=== PATIENT | female | born 1980 | race Caucasian/White ===

== ENCOUNTER 2020-05-09 14:50 | Outpatient (CLI) | payer OTHER, SELFPAY ==
--- NOTE | ~2020-05-09 | MM_ITS ---
EXAMINATION: MM screening liss BI w rafael HISTORY: Screening mammogram TECHNIQUE: Craniocaudal and mediolateral oblique 3-D tomosynthesis images were obtained and synthetic 2-D images were generated. CAD analysis was submitted and interpreted. COMPARISON: 04/06/2019 BREAST PARENCHYMAL COMPOSITION: The breasts are heterogeneously dense, which may obscure small masses . FINDINGS: There is no evidence of suspicious mass, calcification, or architectural distortion to sugg est malignancy in either breast. There has been no suspicious interval change. IMPRESSION: 1. No mammographic evidence of malignancy. 2. Recommend routine screening mammography in one year. BI-RADS Category 1: Negative Reviewed, dictated and finalized at location A.
== END 2020-05-09 14:51 | disposition home or self-care (01) ==
LOC: ANHIMG 14:54
PROVIDERS: PCP Internal Medicine; Visit Provider Obstetrics & Gynecology
DX: Z12.31 Encounter for screening mammogram for malignant neoplasm of breast (principal)
CPT/HCPCS: 77063; 77067

== ENCOUNTER 2021-02-20 14:44 | Outpatient (CLI) | payer OTHER, SELFPAY ==
--- NOTE | ~2021-02-20 | US_ITS ---
EXAMINATION: US pelvic complete w TV DATE: 02/20/2021 15:46 INDICATION: Displacement of intrauterine contraceptive device. TECHNIQUE: Multiple transabdominal and transvaginal sonographic images of the pelvis were obtained. COMPARISON: None. FINDINGS: TRANSABDOMINAL ULTRASOUND: The uterus measures 7.2 x 4.8 x 4.1 cm. There is no free fluid in the pelvis. TRANSVAGINAL ULTRASOUND: The endometrial complex measures 6 mm in thickness. There is an intrauterine device in abnormally low position. The right ovary measures 2.7 x 2.4 x 2.4 cm. The left ovary measures 2.6 x 1.9 x 1.7 cm. IMPRESSION: 1. Intrauterine device in abnormally low position. Reviewed, dictated and finalized at location A.
== END 2021-02-20 14:45 | disposition home or self-care (01) ==
PROVIDERS: PCP Internal Medicine; Visit Provider Obstetrics & Gynecology
DX: T83.32XA Displacement of intrauterine contraceptive device, initial encounter (principal)
CPT/HCPCS: 76830; 76856

== ENCOUNTER 2022-03-19 08:03 | Outpatient (CLI) | payer OTHER, SELFPAY ==
--- NOTE | 2022-03-19 08:20 | EST_ITS ---
Patient Info Name: Silva Saavedra Age: 41 years : 1980 Gender: Female Ht: 67 in Wt: 185 lbs BSA: 2.01 m2 Exam Date: 03/19/2022 8:38 AM Exam Location: [facility] Stress Patient Status: Outpatient Admit Date: 03/19/2022 Staff Ordering Physician: Nancy Potts Attending Provider: Nancy Potts Exercise Technologist: Alisa Farfan RDCS Exercise Physician: Milton Perez DO Exam Type: CA stress test treadmill Study Info A treadmill exercise stress test was performed. Summary 1. 1. Negative Martir exercise stress test for ischemic ST changes by ECG criteria. 2. 2. Good functional capacity, achieving 10 METs of workload. 3. 3. Appropriate HR response to exercise. 4. 4. Appropriate HR recovery at 1 minute post exercise. 5. 5. No imaging with stress testing. 6. 6. Patient informed of the above results. Protocol: Martir Stress ECG Details Stage: REST Duration (min): 4 min : 57 sec Speed (mph): 0.0 Grade (%): 0 HR (bpm): 61 SBP (mmHg): 114 DBP (mmHg): 70 METS: --- Stage: REST Duration (min): 17 min : 0 sec Speed (mph): 0.0 Grade (%): 0 HR (bpm): 69 SBP (mmHg): 114 DBP (mmHg): 70 METS: --- Stage: STAGE 1 Duration (min): 1 min : 0 sec Speed (mph): 1.7 Grade (%): 10 HR (bpm): 100 SBP (mmHg): 114 DBP (mmHg): 70 METS: --- Stage: STAGE 1 Duration (min): 2 min : 0 sec Speed (mph): 1.7 Grade (%): 10 HR (bpm): 111 SBP (mmHg): 114 DBP (mmHg): 70 METS: --- Stage: STAGE 1 Duration (min): 3 min : 0 sec Speed (mph): 1.7 Grade (%): 10 HR (bpm): 116 SBP (mmHg): 137 DBP (mmHg): 77 METS: --- Stage: STAGE 2 Duration (min): 1 min : 0 sec Speed (mph): 2.5 Grade (%): 12 HR (bpm): 122 SBP (mmHg): 137 DBP (mmHg): 77 METS: --- Stage: STAGE 2 Duration (min): 2 min : 0 sec Speed (mph): 2.5 Grade (%): 12 HR (bpm): 131 SBP (mmHg): 136 DBP (mmHg): 77 METS: --- Stage: STAGE 2 Duration (min): 3 min : 0 sec Speed (mph): 2.5 Grade (%): 12 HR (bpm): 135 SBP (mmHg): 136 DBP (mmHg): 77 METS: --- Stage: STAGE 3 Duration (min): 1 min : 0 sec Speed (mph): 3.4 Grade (%): 14 HR (bpm): 150 SBP (mmHg): 133 DBP (mmHg): 77 METS: --- Stage: STAGE 3 Duration (min): 2 min : 0 sec Speed (mph): 3.4 Grade (%): 14 HR (bpm): 155 SBP (mmHg): 133 DBP (mmHg): 77 METS: --- Stage: STAGE 3 Duration (min): 3 min : 0 sec Speed (mph): 3.4 Grade (%): 14 HR (bpm): 160 SBP (mmHg): 140 DBP (mmHg): 77 METS: --- Stage: RECOVERY Duration (min): 0 min : 59 sec Speed (mph): 0.0 Grade (%): 0 HR (bpm): 127 SBP (mmHg): 144 DBP (mmHg): 65 METS: --- Stage: RECOVERY Duration (min): 1 min : 59 sec Speed (mph): 0.0 Grade (%): 0 HR (bpm): 1
== END 2022-03-19 08:04 | disposition home or self-care (01) ==
PROVIDERS: PCP Internal Medicine; Visit Provider Nurse Practitioner
DX: Z13.6 Encounter for screening for cardiovascular disorders (principal); R63.5 Abnormal weight gain
CPT/HCPCS: 36415; 84443; 93017

== ENCOUNTER 2022-03-24 14:56 | Outpatient (CLI) | payer OTHER, SELFPAY ==
--- NOTE | ~2022-03-24 | MM_ITS ---
EXAMINATION: HISTORY: Screening mammogram TECHNIQUE: Craniocaudal and mediolateral oblique 3-D tomosynthesis images were obtained and synthetic 2-D images were generated. CAD analysis was submitted and interpreted. COMPARISON: No prior mammogram is available for comparison at this institution. BREAST PARENCHYMAL COMPOSITION: The breasts are heterogeneously dense, which may obscure small masses . FINDINGS: There is no evidence of suspicious mass, calcification, or architectural distortion to sugg est malignancy in either breast. There has been no suspicious interval change. IMPRESSION: 1. No mammographic evidence of malignancy. 2. Recommend routine screening mammography in one year. BI-RADS Category 1: Negative Reviewed, dictated and finalized at location A.
== END 2022-03-24 14:57 | disposition home or self-care (01) ==
PROVIDERS: PCP Internal Medicine; Visit Provider Obstetrics & Gynecology
DX: Z12.31 Encounter for screening mammogram for malignant neoplasm of breast (principal)
CPT/HCPCS: 77063; 77067

== ENCOUNTER → 2023-07-10 09:05 | Outpatient (CLI) | payer OTHER, SELFPAY ==
--- NOTE | ~2023-07-10 | MM_ITS ---
EXAMINATION: MM screening liss BI w rafael HISTORY: Screening mammogram TECHNIQUE: Craniocaudal and mediolateral oblique 3-D tomosynthesis images were obtained and synthetic 2-D images were generated. CAD analysis was submitted and interpreted. COMPARISON: 03/24/2022, 05/09/2020, 04/06/2019 bilateral screening mammogram examinations BREAST PARENCHYMAL COMPOSITION: The breasts are heterogeneously dense, which may obscure small masses . FINDINGS: There is no evidence of suspicious mass, calcification, or architectural distortion to sugg est malignancy in either breast. There has been no suspicious interval change. IMPRESSION: 1. No mammographic evidence of malignancy. 2. Recommend routine screening mammography in one year. BI-RADS Category 1: Negative Reviewed, dictated and finalized at location A.
== END ==
PROVIDERS: PCP Family Medicine; Visit Provider Obstetrics & Gynecology
DX: Z12.31 Encounter for screening mammogram for malignant neoplasm of breast (principal)
CPT/HCPCS: 77063; 77067

== ENCOUNTER 2024-04-01 10:25 | Outpatient (CLI) | payer OTHER, SELFPAY ==
[2024-04-01 11:26] LABS: Hemoglobin A1C 4.6 % (<5.7)
[2024-04-01 11:28] LABS: Alanine Aminotransferase 13 U/L (6-35); Albumin Level 4.3 g/dL (3.5-5.1); Alkaline Phosphatase 51 U/L (38-126); Anion Gap 7 mmol/L (4-12); Aspartate Amino Transferase 18 U/L (14-36); Blood Urea Nitrogen 8 mg/dL (7-17); Calcium 9.2 mg/dL (8.4-10.2); Carbon Dioxide 25 mmol/L (22-30); Chloride 106 mmol/L (98-107); Cholesterol 145 mg/dL (0-200); Estimated Glomerular Filt Rate > 60; Glucose 87 mg/dL (65-110); HDL Direct 37 mg/dL; Potassium 3.9 mmol/L (3.4-5.0); Sodium 138 mmol/L (137-145); Triglycerides 77 mg/dL (<150)
[2024-04-01 11:39] LABS: LDL Cholesterol Direct 100 mg/dL
== END 2024-04-01 10:26 | disposition home or self-care (01) ==
PROVIDERS: PCP Nurse Practitioner
DX: Z01.89 Encounter for other specified special examinations (principal); E66.3 Overweight
CPT/HCPCS: 36415; 80053; 80061; 83036; 84443

== ENCOUNTER 2024-04-26 01:12 | Day surgery (SDC) | payer OTHER, SELFPAY ==
[2024-04-12 09:56] VITALS: BMI 25.9
[2024-04-26 08:59] VITALS: BP 109/65; PULSE 62; RESP 18; TEMP 36.3; O2SAT 100
[2024-04-26] MEDS: LACTATED RINGERS 1,000 ML 150 ML IV CONT (09:07)
--- NOTE | 2024-04-26 09:09 | WPDANESEPPF ---
Anes - Initial Pre Proc Eval Procedure: Operation Date: 04/26/24 10:00 Proposed Procedures p Screening Colonoscopy - Escobar Ford MD Date/Time: 04/26/24 09:09 Surgeon: Escobar Ford MD Pre Op Diagnosis: neoplasm screening Patient Data Age: 43 Gender: F Height: 1.7 m Weight: 73.4 kg Last Vital Signs Temp 97.3 F L 04/26/24 08:59 Pulse 62 04/26/24 08:59 Resp 18 04/26/24 08:59 BP 109/65 04/26/24 08:59 Pulse Ox 100 04/26/24 08:59 O2 Del Method Room Air 04/26/24 08:59 Allergies Allergy/AdvReac Type Severity Reaction Status Date / Time No Known Allergies Allergy Verified 04/26/24 08:52 Home Medications Medication Instructions Recorded Confirmed Type levonorgestrel 21 mcg/24 hr (up to 1 device intrauterine ONCE 01/16/21 04/12/24 History 8 years) 52 mg intrauterine device (Mirena) tirzepatide 5 mg/0.5 mL 5 mg subcut WEEKLY 04/12/24 04/12/24 History subcutaneous pen injector (Mounjaro) Patient hx anesthesia problems: none Family hx anesthesia problems: none Results Review: All pre-operative results and documents have been reviewed as part of the pre-operative evaluation. [facility] Surgical History Surgical History (Updated 01/25/24 @ 15:07 by Pauline Bonilla CMA) History of cholecystectomy History of surgery on arm History of tonsillectomy Hx of neck surgery Previous section x 2 S/P scar revision Family History Family History Mother Hypertension Father Family history of alcoholism Sibling Family history of multiple sclerosis Grandparent Diabetes mellitus, Onset Age: 62 Other Family history of cardiovascular disease Family history of kidney disease Social History Social History Smoking status: Former smoker Second hand tobacco smoke exposure: No Smoking end date: 11/22/11 Alcohol intake: current Drinks per week: 6 Substance use: never Substance use type: does not use Lack of Transportation: No Lack of Food: Never True Current Housing: I Have Housing Concerned About Future Housing: No Difficulty Paying Gas/Electric Bills: No Difficulty Paying for Meds: No Currently Unemployed: No Education: Master's Degree or Higher Difficulty w/ Childcare or Family Care: No Living arrangements: with family Spiritual care concerns: No Anes - Eval Final PreProcedure Day of Procedure 04/26/24 09:09 Patient weight: normal Heart: regular rate and rhythm Lungs: clear to auscultation Airway: Mallampati scale class II Neurological: alert and oriented Last oral intake: >/= 8 hours ASA classification: II Emergent: no Anesthetic plan: proceed Anesthesia type and monitoring: general GIVS and standard monitoring Results Review: All pre-operative results and documents have been reviewed as part of the pre-operative evaluation. Informed Consent: The patient's anesthetic plan and its attendant risks and benefits were discussed with the patient/family/POA. Questions were solicited and answers provided to the satisfaction of the patient/family/POA.
--- NOTE | 2024-04-26 09:54 | PM.HPGS ---
History of Present Illness History of Present Illness Consent: Risks, benefits, and alternatives have been discussed and questions answered. Patient agrees to proceed with procedure. Chief complaint: neoplasm screening Narrative: Silva Saavedra is a 43 year old female here for first screening colonoscopy Review of Systems Review of Systems: All systems reviewed & are unremarkable except as noted in HPI and below PMFSH Past Medical History Medical History (Updated 04/26/24 @ 09:56 by Escobar oFrd MD) Colon cancer screening Surgical History Surgical History (Updated 01/25/24 @ 15:07 by Pauline Bonilla [facility]) History of cholecystectomy History of surgery on arm History of tonsillectomy Hx of neck surgery Previous section x 2 S/P scar revision Family History Family History Mother Hypertension Father Family history of alcoholism Sibling Family history of multiple sclerosis Grandparent Diabetes mellitus, Onset Age: 62 Other Family history of cardiovascular disease Family history of kidney disease Social History Social History Smoking status: Former smoker Second hand tobacco smoke exposure: No Smoking end date: 11/22/11 Alcohol intake: current Drinks per week: 6 Substance use: never Substance use type: does not use Lack of Transportation: No Lack of Food: Never True Current Housing: I Have Housing Concerned About Future Housing: No Difficulty Paying Gas/Electric Bills: No Difficulty Paying for Meds: No Currently Unemployed: No Education: Master's Degree or Higher Difficulty w/ Childcare or Family Care: No Living arrangements: with family Spiritual care concerns: No Meds Home Medications and Allergies Home Medications Medication Instructions Recorded Confirmed Type levonorgestrel 21 mcg/24 hr (up to 1 device intrauterine ONCE 01/16/21 04/12/24 History 8 years) 52 mg intrauterine device (Mirena) tirzepatide 5 mg/0.5 mL 5 mg subcut WEEKLY 04/12/24 04/12/24 History subcutaneous pen injector (Mounjaro) Allergies Allergy/AdvReac Type Severity Reaction Status Date / Time No Known Allergies Allergy Verified 04/26/24 08:52 Vital Signs Vital Signs - 24 hr 04/26/24 08:59 Temperature 97.3 F L Pulse Rate 62 Respiratory Rate 18 Blood Pressure 109/65 Pulse Oximetry 100 Oxygen Delivery Room Air Exam Const: General: comfortable and no acute distress HENMT: Face/Nose/Sinus: Normal nares present Eyes: General: appearance normal, both eyes and all related structures Neck: Neck: no JVD Resp: Auscultation: clear to auscultation bilaterally Cardio: Rate: regular rate Rhythm: regular rhythm GI: Inspection: non-distended GI Palp: Yes Soft to palpation Skin: General skin exam: normal color Neuro: General: gait normal Speech: normal speech Extrem: General: normal to inspection Psych: Mental Status: mental status grossly normal Assessment and Plan Assessment and plan (1) Colon cancer screening: Code(s): Z12.11 - Encounter for screening for malignant neoplasm of colon Status: Acute Assessment and Plan: colonoscopy
[2024-04-26 10:19] VITALS: BP 97/61; PULSE 68; RESP 20; O2SAT 100
[2024-04-26 10:29] VITALS: BP 105/71; PULSE 61; RESP 21; O2SAT 100
[2024-04-26 10:39] VITALS: BP 113/69; PULSE 71; RESP 18; O2SAT 100
== END 2024-04-26 10:45 | disposition home or self-care (01) ==
PROVIDERS: PCP Nurse Practitioner; Referring Provider Obstetrics & Gynecology; Visit Provider Internal Medicine Gastroenterology
PROC: 0DJD8ZZ Inspection of Lower Intestinal Tract, Via Natural or Artificial Opening Endoscopic (ICD-10-PCS; CPT 45378; principal; 2024-04-26 10:00)
DX: Z12.11 Encounter for screening for malignant neoplasm of colon (principal); D12.2 Benign neoplasm of ascending colon; K64.8 Other hemorrhoids; Z79.85 Long-term (current) use of injectable non-insulin antidiabetic drugs; Z87.891 Personal history of nicotine dependence
CPT/HCPCS: 45380; 88305; J2704; J7120

== ENCOUNTER 2024-11-12 12:33 | Emergency (ER) | payer OTHER, SELFPAY ==
[2024-11-12 13:16] VITALS: BP 106/78; PULSE 67; RESP 18; TEMP 36.5; O2SAT 100
--- NOTE | 2024-11-12 13:55 | ED.URI ---
HPI - URI/Sore Throat General Chief Complaint: Upper Respiratory Infection Stated Complaint: cold symptoms Time Seen by Provider: 11/12/24 13:55 Source: patient, RN notes reviewed and old records reviewed Mode of arrival: ambulatory Limitations: no limitations History of Present Illness HPI Narrative: 44 year old female who presents to [facility] care with complaints of not feeling well on with complaints of fevers starting on Wednesday up to 103F, sore throat which feels like it is o fire, and non productive cough with some general body aches. Patient has been taking Tylenol and Ibuprofen for her symptoms. 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 MD elicited complaint: fever, cough, sore throat and other (body aches) Onset (ago): day(s) (4) Severity: moderate Able to tolerate fluids by mouth: Yes Treatments prior to arrival: acetaminophen and ibuprofen Related Data Home Medications ?Medication ?Instructions ?Recorded ?Confirmed ?Last Taken ?Type levonorgestrel (Mirena) 1 device intrauterine ONCE 01/16/21 04/12/24 Unknown History tirzepatide 5 mg/0.5 mL 5 mg subcut WEEKLY 04/12/24 04/12/24 04/14/24 History subcutaneous pen injector (Mounjaro) Allergies Allergy/AdvReac Type Severity Reaction Status Date / Time No Known Allergies Allergy Verified 11/12/24 13:44 Review of Systems Review of Systems: CONSTITUTIONAL: Reports malaise, chills, sweats, or fever. EYES: Denies visual changes, redness, or discharge. ENT: Reports rhinorrhea, congestion, no sinus pain,no otalgia and positive sore throat. CARDIOVASCULAR: Denies chest pain, palpitations, or edema. RESPIRATORY: Reports cough.? Denies dyspnea. GASTROINTESTINAL: Denies abdominal pain, nausea, vomiting, diarrhea SKIN: Denies rash or itching. MUSCULOSKELETAL:reports myalgia. NEUROLOGIC: Denies headache. All systems reviewed & are unremarkable except as noted in HPI and below PMFSH Past Medical History Medical History Colon cancer screening Surgical History Surgical History S/P scar revision History of surgery on arm Hx of neck surgery History of tonsillectomy History of cholecystectomy Previous section x 2 Family History Family History Mother Hypertension Father Family history of alcoholism Sibling Family history of multiple sclerosis Grandparent Diabetes mellitus, Onset Age: 62 Other Family history of cardiovascular disease Family history of kidney disease Social History Social History (Updated 11/14/24 @ 09:08 by Tonya Soto NP) Smoking status: Former smoker Second hand tobacco smoke exposure: No Smoking end date: 11/22/11 Additional smoking assessment comments: admits to some vaping Alcohol intake: current Drinks per week: 6 Substance use: never Substance use type: does not use Lack of Transportation: No Lack of Food: Never True Current Housing: I Have Housing Concerned About Future Housing: No Difficulty Paying Gas/Electric Bills: No Difficulty Paying for Meds: No Currently Unemployed: No Education: Master's Degree or Higher Difficulty w/ Childcare or Family Care: No Living arrangements: with family Spiritual care concerns: No Comments At time of signature, agree with nursing past medical, surgical, social and family history. There is no relevant family history pertinent to the presenting complaint Exam Narrative: GENERAL: Well-appearing, well-nourished, and in no acute distress. HEAD: Normocephalic EYES: PERRLA, conjunctivae clear ENT: Nares clear, turbinates edematous and erythematous, clear discharge. Mucous membranes moist. TM pearly welsh with dull light reflex bilaterally; no tragal tenderness. Oropharynx erythematous without lesions. Tonsils not present and throat without exudate, no drooling, no hoarseness, no trismus, uvula midline.post nasal drainage. NECK: Supple. No lymphadenopathy CHEST: Clear to auscultation, breath sounds equal. No wheezing, rhonchi, rales, or stridor. No respiratory distress, speaks in full sentences.cough noted SAO2 100% on room air HEART: Regular rate and rhythm. No murmur heard. SKIN: Warm, dry, no rash. NEURO: Alert and oriented x3. PSYCH: Normal mood and affect Course Course Emergency Course: Patient is aware of diagnosis, understands and agrees to treatment plan.? Anticipatory guidance given.? Patient agrees to follow-up as directed and is aware of reasons to seek care at the emergency department. Portions of this record may have been created with voice recognition software Level of Care: Express Care Visit Vital Signs Vital signs: Vital Signs Temperature 36.5 C 11/12/24 13:16 Pulse Rate 67 11/12/24 13:16 Respiratory Rate 18 11/12/24 13:16 Blood Pressure 106/78 11/12/24 13:16 Pulse Oximetry 100 11/12/24 13:16 Oxygen Delivery Room Air 11/12/24 13:16 Temperature 36.5 C 11/12/24 13:16 Pulse Rate 67 11/12/24 13:16 Respiratory Rate 18 11/12/24 13:16 Blood Pressure 106/78 11/12/24 13:16 Pulse Oximetry 100 11/12/24 13:16 Oxygen Delivery Room Air 11/12/24 13:16 Reviewed MDM - URI/Sore Throat MDM Narrative Medical decision making narrative: Differential diagnosis considered: Mcgill virus, strep pharyngitis, allergic rhinitis, upper respiratory tract infection, sinusitis, rhinosinusitis, nasopharyngitis. viral pharyngitis, otitis media, otitis externa, pneumonia, bronchitis, viral cough syndrome, viral syndrome, and influenza.? Exam findings show no acute concerns or changes; patient is non-toxic appearing and is in no distress.? Patient is appropriate for outpatient treatment and follow-up. Differential Diagnosis Differential diagnosis: Likely upper respiratory infection, sinusitis, viral infection, influenza, pharyngitis and other (strep pharyngitis, COVID) Medical Records Attestation: I reviewed the patient's medical records. Lab Data Attestation: I reviewed the patient's lab results. Lab results narrative: Strep screen negative, culture sent, Influenza A positive, Influenza B negative, Covid negative Labs: Lab Results 11/12/24 11/12/24 Range/Units 14:16 14:35 POC Influenza A Ag Positive (Negative) POC Influenza B Ag Negative (Negative) POC SARS CoV-2 Ag Negative (Negative) POC Grp A Strep Screen Negative (Negative) reviewed Critical Care Time Critical Care Time Critical Care Time: No Discharge Plan Discharge Clinical Impression: Influenza A Patient Disposition: Home, Self-Care Condition: Stable Instructions: Influenza (ED) Additional Instructions: Increase fluids especially juices and water Lbwy-gfk-fkydbes cough and cold medicine of your choice for your symptoms Zyrtec Claritin or Kiana daily Tylenol or ibuprofen for any fever pain Robitussin or Delsym cough syrup heat to the face 20-30 minutes 4-6 times a day for pain Salt water gargles, throat lozenges or throat sprays as desired You must be fever free for 24 hours without use of Tylenol or ibuprofen before you can be around others. on average it is usually 5 days from start of symptoms, recommend you wear mask for first few days when you are around others especially if around the elderly or children Patient Language: Ukrainian Prescriptions: No Action Mirena 20 mcg/24 hours (6 yrs) 52 mg intrauterine device 1 device intrauterine ONCE Rx Instructions: as a single dose Mounjaro 5 mg/0.5 mL Pen Injector 5 mg SUBCUT WEEKLY Rx Instructions: Fridays Follow-up/Referrals: Ricco Ponce MD [Primary Care Provider] - Time of Disposition: 14:35 Quality [place] Coma Scale Eyes: Open Verbal: Oriented and Alert Motor: Follows Commands [place] Coma Total Score: 15
[2024-11-12 14:17] LABS: EDSTREPNEGPOS1 Negative (Negative)
[2024-11-12 14:37] LABS: EDCOVIDSCREEN Negative (Negative); EDINFLUASCREEN Positive (Negative); EDINFLUBSCREEN Negative (Negative)
--- OUTSIDE RECORDS SUMMARY | 2024-11-19 18:21 | XMS_ITS | Continuity of Care Document ---
Author Organization [facility] Address [address] [place] [address] Phone Care Team Providers Care Parent Educator Name Role Phone Chandler Martinez Unavailable Unavailable Procedures Procedure Date Office/outpatient Visit, [facility] Advance Directives Directive Yes / No Effective Date File Name No Information Encounters Encounter Description Practice Location Reason(s) For Visit Diagnoses Date Provider Providers Copied on Encounter Office/outpat ient Visit, [facility], [address], [place], [place], [id number], [place] tel:[phone] [facility] No Information [address] [facility] [address], [address], [place]. tel:[phone] Family History Family Member Type Diagnosis Age [...]
--- OUTSIDE RECORDS SUMMARY | 2024-11-19 18:21 | XMS_ITS | Continuity of Care Document ---
Author Organization [facility] Address [address] [place] [address] Phone Care Team Providers Care Building Maintenance Engineer Name Role Phone Chandler Martinez Unavailable Unavailable Procedures Procedure Date Office/outpatient Visit, [facility] Advance Directives Directive Yes / No Effective Date File Name No Information Encounters Encounter Description Practice Location Reason(s) For Visit Diagnoses Date Provider Providers Copied on Encounter Office/outpat ient Visit, [facility], [address], [place], [place], [id number], [place] tel:[phone] [facility] No Information [address] [facility] [address], [place], [address], [place]. tel:[phone] Family History Family Member Type Diagnosis Age At Onset No Information Payers Payer name Insurance type Covered alliance party ID Authoriza tion(s) No Information Social [...]
== END 2024-11-12 14:38 | disposition home or self-care (01) ==
PROVIDERS: Emergency Provider Registered Nurse; PCP Family Medicine
DX: J10.1 Influenza due to other identified influenza virus with other respiratory manifestations (principal); Z20.822 Contact with and (suspected) exposure to COVID-19
CPT/HCPCS: 87081; 87426; 87804; 87880; 99213; G0463

== ENCOUNTER 2025-05-29 12:00 | Outpatient (CLI) | payer OTHER, SELFPAY ==
--- OUTSIDE RECORDS SUMMARY | 2025-05-29 12:03 | XMS_ITS | Continuity of Care Document ---
Author Organization Located [facility] Address [address] [place] [address] Phone Care Team Providers Care Sponge Packer Name Role Phone Chandler Martinez Unavailable Unavailable Procedures Procedure Date Office/outpatient Visit, [facility] Advance Directives Directive Yes / No Effective Date File Name No Information Encounters Encounter Description Practice Location Reason(s) For Visit Diagnoses Date Provider Providers Copied on Encounter Office/outpat ient Visit, [facility], [address], [place], [place], [id number], [place] tel:[phone] [facility] No Information [address] [facility] [address], [place], [address], [place]. tel:[phone] Family History Family Member Type Diagnosis Age At Onset No Information Payers Payer name Insurance type Covered libertarian ID Authoriza tion(s) No Information Social History [...]
== END 2025-05-29 12:01 | disposition home or self-care (01) ==
PROVIDERS: PCP Family Medicine; Visit Provider Obstetrics & Gynecology
DX: N95.1 Menopausal and female climacteric states (principal)
CPT/HCPCS: 36415; 83001

== ENCOUNTER 2025-09-27 09:12 | Outpatient (CLI) | payer OTHER, SELFPAY ==
--- OUTSIDE RECORDS SUMMARY | 2009-08-14 09:45 | XMS_ITS | Continuity of Care Document ---
Author Organization [facility] Address [address] [place] [address] Phone Care Team Providers Care Wincher Name Role Phone Chandler Martinez Unavailable Unavailable Procedures Procedure Date Office/outpatient Visit, [facility] Advance Directives Directive Yes / No Effective Date File Name No Information Encounters Encounter Description Practice Location Reason(s) For Visit Diagnoses Date Provider Providers Copied on Encounter Office/outpat ient Visit, [facility], [address], [place], [place], [id number], [place] tel:[phone] [facility] No Information [address] [facility] [address], [place], [address], [place]. tel:[phone] Family History Family Member Type Diagnosis Age At Onset No Information Payers Payer name Insurance type Covered green party ID Authoriza tion(s) No Information Social History Type Description Quantity Date Captured Comments Sex Female Smoking Status No Information Chief Complaint And Reason For Visit No Information Reason For Referral Reason For Referral No Information History Of Present Illness Encounter Date Complaint History Of Prese nt Illness No Information Functional Status Date Functional Assessmen t No Information Instructions Date Instruction Additional Infor mation No Information Assessments Type Assessment Date No Information Patient Care Teams Name Effective Dates (start - stop) Status Members No Information
--- NOTE | ~2025-09-27 | MM_ITS ---
EXAMINATION: MM screening liss BI w rafael HISTORY: Screening TECHNIQUE: Craniocaudal and mediolateral oblique 3-D tomosynthesis images were obtained and synthetic 2-D images were generated. CAD analysis was submitted and interpreted. COMPARISON: Comparison to multiple prior studies sequentially, with oldest reviewed study dated , 04/06/2019 BREAST PARENCHYMAL COMPOSITION: The breasts are heterogeneously dense, which may obscure small masses. FINDINGS: There is no evidence of suspicious mass, calcification, or architectural distortion to suggest malignancy in either breast. IMPRESSION: 1. No mammographic evidence of malignancy. 2. Recommend routine screening mammography in one year. BI-RADS Category 1: Negative Reviewed, dictated and finalized at location B. MACHINIST
== END 2025-09-27 09:13 | disposition home or self-care (01) ==
LOC: ANHFOHIMG 09:13
PROVIDERS: PCP Family Medicine; Visit Provider Obstetrics & Gynecology
DX: Z12.31 Encounter for screening mammogram for malignant neoplasm of breast (principal)
CPT/HCPCS: 77063; 77067